=== PATIENT | female | born 1980 | race Caucasian/White ===

== ENCOUNTER 2021-01-07 13:51 | Emergency (ER) | payer MEDICAID ==
[~2021-01-07] VITALS: Ht 167.6 cm; Wt 72.7 kg
[2021-01-07 14:17] VITALS: BP 141/94
--- NOTE | 2021-01-07 14:21 | NUR ---
PT CAME IN CO WOUND ON HER INNER GROIN. "IM NOT SURE IF ITS A SPIDER BITE OR IF MY PANTS WERE RUBBING IT. IT STARTED ABOUT A WEEK AGO". PT REPORTS SHE HAS BEEN FEELING FATIGUED AND HAS BEEN SLEEPING A LOT.
[2021-01-07] MEDS ORDERED: CEPHALEXIN 500 MG CAPSULE ONE (14:51)
[2021-01-07] MEDS ORDERED: SULFAMETH./TRIMETHOPRIM DS 800MG/160MG TABLET ONE (14:51)
[2021-01-07] MEDS ORDERED: CEPHALEXIN 500 MG CAPSULE PO ONE (15:00)
[2021-01-07] MEDS ORDERED: SULFAMETH./TRIMETHOPRIM DS 800MG/160MG TABLET PO ONE (15:00)
[2021-01-07] MEDS ORDERED: BACITRACIN OINT 500U/GM, 15 GM EXT ONE (15:00)
== END 2021-01-07 15:25 | disposition home or self-care (01) ==
LOC: ED 14:57
DX: L03.315 Cellulitis of perineum (principal); F17.210 Nicotine dependence, cigarettes, uncomplicated
CPT/HCPCS: 99283

== ENCOUNTER 2021-02-17 09:25 | Emergency (ER) | payer MEDICAID ==
[~2021-02-17] VITALS: Ht 167.6 cm; Wt 70.3 kg
[2021-02-17 09:43] VITALS: BP 109/83
--- NOTE | 2021-02-17 18:00 | NUR ---
LENNYx1
--- NOTE | 2021-02-17 18:45 | NUR ---
NILx2
--- NOTE | 2021-02-17 19:03 | NUR ---
TASK RN: NO [id number] TO TRIAGE FROM [facility].
== END 2021-02-17 19:25 | disposition left against medical advice (07) ==
LOC: ED 10:00
DX: L03.314 Cellulitis of groin (principal)
CPT/HCPCS: 99281; 99282; 99283